=== PATIENT | male | born 1975 | race Caucasian/White ===

== ENCOUNTER 2017-01-17 13:21 | Day surgery (SDC) | payer BC ==
[2017-01-16 09:43] LABS: HEMATOCRIT 45.1 % (39.2-51.8); HEMOGLOBIN 15.4 g/dL (13.7-18.0)
[2017-01-16 09:54] LABS: ASPARTATE AMINO TRANSFERASE 11 U/L (15-37); BLOOD UREA NITROGEN 13 mg/dL (7-18)
[~2017-01-17] VITALS: Ht 177.8 cm; Wt 108.0 kg
[~2017-01-17 13:21] MED LIST: None per pt
[2017-01-17] MEDS ORDERED: BUPIVACAINE/PF 0.5% ONE (13:35)
[2017-01-17] MEDS ORDERED: EPINEPHRINE 1 MG/ML, 1ML ONE (13:35)
[2017-01-17] MEDS ORDERED: LACTATED RINGERS 1,000 ML IV SCH ×2 (13:43→20:00)
[2017-01-17 13:46] VITALS: BP 125/87
[2017-01-17] MEDS ORDERED: LIDOCAINE 1%, 2ML SQ PRN (14:00)
[2017-01-17] MEDS ORDERED: FENTANYL PF 250 MCG/5ML ONE (15:27)
[2017-01-17] MEDS ORDERED: MIDAZOLAM 1 MG/ML, 2ML ONE (15:27)
[2017-01-17] MEDS ORDERED: KETOROLAC 30 MG/1 ML ONE (15:35)
[2017-01-17] MEDS ORDERED: BUPIVACAINE/PF 0.5% INFIL ONE (16:07)
[2017-01-17] MEDS ORDERED: PROMETHAZINE 25 MG/ML, 1ML IV PRN (17:00)
[2017-01-17] MEDS ORDERED: OXYcodone 5 MG/5 ML ORAL.SOL UDC PO PRN (17:00)
[2017-01-17] MEDS ORDERED: ALBUTEROL/IPRATROPIUM 2.5MG/0.5MG, 3 ML NPPB PRN (17:00)
[2017-01-17] MEDS ORDERED: FENTANYL PF 100 MCG/2ML IV PRN (17:00)
[2017-01-17] MEDS ORDERED: METOPROLOL 1 MG/ML, 5ML IV PRN (17:00)
[2017-01-17] MEDS ORDERED: hydrALAzine 20 MG/ML, 1ML IV PRN (17:00)
[2017-01-17] MEDS ORDERED: MEPERIDINE/PF 25MG/0.5ML IVPush PRN (17:00)
[2017-01-17] MEDS ORDERED: LORazepam 2 MG/ML, 1ML IVPush PRN (17:00)
[2017-01-17] MEDS ORDERED: HYDROmorphone 1 MG/ML, 1ML IV PRN (17:00)
[2017-01-17] MEDS ORDERED: ACETAMINOPHEN 325 MG TABLET PO PRN (17:00)
[2017-01-17] MEDS ORDERED: SUCCINYLCHOLINE 20 MG/ML, 10ML ONE (17:05)
[2017-01-17] MEDS ORDERED: NEOSTIGMINE 1 MG/ML, 10ML ONE (17:05)
[2017-01-17] MEDS ORDERED: DEXAMETHASONE 4 MG/ML, 1ML ONE (17:05)
[2017-01-17] MEDS ORDERED: ROCURONIUM 10 MG/ML,10ML ONE (17:05)
[2017-01-17] MEDS ORDERED: GLYCOPYRROLATE 0.2MG/1ML, 5ML ONE (17:05)
[2017-01-17] MEDS ORDERED: PROPOFOL 10 MG/ML, 20ML ONE (17:05)
[2017-01-17] MEDS ORDERED: CEFAZOLIN 1,000 MG ONE (17:05)
[2017-01-17] MEDS ORDERED: ONDANSETRON 2MG/ML, 2ML ONE (17:05)
[2017-01-17] MEDS ORDERED: OXYcodone 5 MG/5 ML ORAL.SOL UDC ONE (17:27)
[2017-01-17] MEDS ORDERED: MORPHINE SULFATE 4 MG/ML, 1ML IVPush PRN (20:00)
[2017-01-17] MEDS ORDERED: ONDANSETRON 2MG/ML, 2ML IVPush PRN (20:00)
[2017-01-17] MEDS ORDERED: OXYcodone/APAP 5/325MG TABLET PO PRN (20:00)
[2017-01-17] MEDS ORDERED: OXYC-306 PO (21:13)
[2017-01-17] MEDS ORDERED: IBUP-1222 PO (21:14)
== END 2017-01-17 21:45 | disposition home or self-care (01) ==
LOC: OR 13:21 → 4NOR 18:48 → OR 21:45
PROVIDERS: ATTEND Surgery
DX: K40.20 Bilateral inguinal hernia, without obstruction or gangrene, not specified as recurrent (principal); K42.9 Umbilical hernia without obstruction or gangrene; Z87.891 Personal history of nicotine dependence; Z98.890 Other specified postprocedural states
CPT/HCPCS: 36415; 49650; 49652; 71020; 80053; 85025; 93005; C1727; C1781; J0171; J0330; J0690; J1100; J1885; J2250; J2405; J2704; J2710; J3010; J3490; J7120